=== PATIENT | male | born 2000 | race Two or more races ===

== ENCOUNTER 2022-05-01 21:41 | Emergency (ER) | payer SELFPAY ==
[~2022-05-01] VITALS: Ht 172.7 cm; Wt 65.3 kg
[2022-05-01 21:58] VITALS: BP 129/74
--- NOTE | 2022-05-01 21:58 | NUR ---
DR. DOM GARZA AT PT'S BEDSIDE FOR EVAL
[2022-05-01] MEDS ORDERED: AMOX/CLAVULANATE 875 MG TABLET ONE (22:01)
[2022-05-01] MEDS: AMOX/CLAVULANATE 875 MG TABLET PO ONE (22:03)
--- NOTE | 2022-05-01 22:03 | NUR ---
EMT AT PT'S BEDSIDE FOR WOUNDCARE. DRESSING TO BILATERAL ARMS; KEPT CLEAN AND DRY. NO ACTIVE BLEEDING NOTED.
[2022-05-01] MEDS ORDERED: AMOX-430 PO (22:09)
--- NOTE | 2022-05-01 22:23 | NUR ---
Patient discharged to home in stable condition. Written and verbal after care instructions given. Patient verbalizes understanding of instruction. Pt ambulatory with a steady gait
== END 2022-05-01 22:24 | disposition home or self-care (01) ==
LOC: ER 21:54
DX: S51.851A Open bite of right forearm, initial encounter (principal); S51.852A Open bite of left forearm, initial encounter; Z91.010 Allergy to peanuts; Z91.012 Allergy to eggs; Z91.011 Allergy to milk products; Z88.8 Allergy status to other drugs, medicaments and biological substances; Z60.2 Problems related to living alone; Z79.899 Other long term (current) drug therapy; W54.0XXA Bitten by dog, initial encounter; Y93.89 Activity, other specified; Y92.89 Other specified places as the place of occurrence of the external cause; Y99.8 Other external cause status